=== PATIENT | male | born 1970 | race Caucasian/White ===

== ENCOUNTER 2019-09-15 10:47 | Emergency (ER) | payer OTHER ==
[~2019-09-15] VITALS: Ht 177.8 cm; Wt 141.5 kg
[2019-09-15] MEDS ORDERED: K-TAB ER20 MEQ PO (13:03)
--- NOTE | 2019-09-15 22:28 | EKG ---
[facility] [address] [facility] [place] [address] Signed Sinus rhythm with frequent premature ventricular complexes Minimal voltage criteria for LVH, may be normal variant Nonspecific T wave abnormality Abnormal ECG No previous ECGs available Confirmed by LEIGHTON MENDOZA MD ([id number]) on 09/15/2019 10:27:54 PM Electronically Signed By: LEIGHTON MENDOZA MD 09/15/19 2228 PATIENT NAME: DUNGMATHIEUMILDRED HAMEED Electrocardiogram DATE OF : 66 PHYSICIAN: LEIGHTON MENDOZA MD REPORT #: [id number] REPORT IS CONFIDENTIAL AND NOT TO BE RELEASED WITHOUT AUTHORIZATION
== END 2019-09-15 13:39 | disposition home or self-care (01) ==
LOC: ED 10:47
DX: I49.3 Ventricular premature depolarization (principal); E87.6 Hypokalemia; I10 Essential (primary) hypertension
CPT/HCPCS: 71046; 80053; 83735; 83880; 84484; 85025; 93005; 93010; 99285-25

== ENCOUNTER 2020-11-09 11:58 | Emergency (ER) | payer OTHER ==
[~2020-11-09] VITALS: Ht 177.8 cm; Wt 137.9 kg
[~2020-11-09 11:58] MED LIST: K-TAB ER20 MEQ PO
[2020-11-09] MEDS ORDERED: TELMISARTAN-HC1 EAC1 PO (12:24)
[2020-11-09] MEDS ORDERED: HYDROCODON-ACE1 EA10 PO (15:28)
[2020-11-09] MEDS ORDERED: FLOMAX0.4 MG PO (15:28)
== END 2020-11-09 15:41 | disposition home or self-care (01) ==
LOC: ED 11:58
DX: N13.2 Hydronephrosis with renal and ureteral calculous obstruction (principal); I10 Essential (primary) hypertension; Z88.0 Allergy status to penicillin; Z79.899 Other long term (current) drug therapy
CPT/HCPCS: 74176; 80053; 81001; 83690; 83735; 85025; 96374; 96375; 99284-25; J1885; J2405

== ENCOUNTER 2023-02-20 15:24 | Emergency (ER) | payer OTHER ==
[~2023-02-20] VITALS: Ht 177.8 cm; Wt 136.3 kg
--- OUTSIDE RECORDS SUMMARY | ~2023-02-20 | XMS | Continuity of Care Document ---
Demographics + + + | Address | [address] | | | [place] [address] | + + + | Preferred Language | Unknown | + + + | Marital Status | | + + + | Synagogue Affiliation | Unknown | + + + | Race | White | + + + | Ethnic Group | Unknown | + + + Author + + + | Author | [facility] | + + + | Organization | [facility] | + + + | Address | [address] | | | [place] [address] | + + + | Phone | | + + + Care Team Providers + + + + | Care Energy Advisor Name | Role | Phone | + + + + Unavailable | Unavailable | + + + + Allergies No information. Encounters No information. Functional Status No information. Immunizations No information. Medications No information. Problems + + + + | date | description | facility | + + + + | 2022-06-25 10:59 | Essential (primary) | [facility] | | | hypertension | | + + + + | 2022-06-25 10:59 | OTHER CHEST PAIN | [facility] | + + + + Procedures No information. Results/Labs No information. Social History No information. Vital Signs No information."
[~2023-02-20 15:24] MED LIST changes: +FLOMAX0.4 MG PO; +HYDROCODON-ACE1 EA10 PO; +TELMISARTAN-HC1 EAC1 PO; +VENTOLIN HFA18 GM INH
[2023-02-20] MEDS ORDERED: TELMISARTAN80 MG PO (16:28)
[2023-02-20] MEDS ORDERED: AMLODIPINE BESY10 MG PO (16:28)
[2023-02-20] MEDS ORDERED: LABETALOL HCL100 MG PO (16:28)
[2023-02-20] MEDS ORDERED: POTASSIUM CHLO20 ME1 PO (16:30)
[2023-02-20] MEDS ORDERED: IRON325 M1 PO (16:30)
[2023-02-20 19:37] VITALS: BP 152/85
--- NOTE | 2023-02-22 06:52 | EKG ---
[facility] [address] [facility] [place] [address] Signed Normal sinus rhythm Normal ECG When compared with ECG of 15-SEP-2019 10:50, premature ventricular complexes are no longer present Confirmed by CHIQUIS PRETTY MD ([id number]) on 02/22/2023 6:51:52 AM Electronically Signed By: CHIQUIS PRETTY 02/22/23 0652 PATIENT NAME: MATHIEU RAZO ZARI Electrocardiogram DATE OF : 66 PHYSICIAN: CHIQUIS PRETTY REPORT #: [id number] REPORT IS CONFIDENTIAL AND NOT TO BE RELEASED WITHOUT AUTHORIZATION
== END 2023-02-20 20:14 | disposition home or self-care (01) ==
LOC: ED 15:24
DX: R10.11 Right upper quadrant pain (principal); R25.2 Cramp and spasm; I10 Essential (primary) hypertension; G47.30 Sleep apnea, unspecified; Z88.0 Allergy status to penicillin; Z88.8 Allergy status to other drugs, medicaments and biological substances; Z79.899 Other long term (current) drug therapy
CPT/HCPCS: 36415; 80053; 82553; 82607; 82746; 83550; 83690; 83735; 84484; 85025

== ENCOUNTER 2024-03-03 05:57 | Day surgery (SDC) | payer OTHER ==
[2024-03-01 16:33] VITALS: BP 170/92
[~2024-03-03] VITALS: Ht 177.8 cm; Wt 122.7 kg
[~2024-03-03 05:57] MED LIST changes: +AMLODIPINE BESY10 MG PO; +IRON325 M1 PO; +LABETALOL HCL100 MG PO; +LACTATED RINGER'S 1,000 ML IV SCH; +POTASSIUM CHLO20 ME1 PO; +TELMISARTAN80 MG PO
[2024-03-03 06:16] VITALS: BP 132/68
[2024-03-03] MEDS ORDERED: MUCINEX600 MG PO (06:19)
[2024-03-03] MEDS ORDERED: SODIUM CHLORIDE 0.9% 60 ML IV ONE (06:42)
[2024-03-03] MEDS ORDERED: iopamidoL 30 ML VIAL ONE (06:42)
[2024-03-03] MEDS ORDERED: HEParin SOD (PORCINE) 5,000 UNIT/0.5 ML SYR SUB-Q SCH (07:00)
[2024-03-03] MEDS ORDERED: LIDOCAINE HCL 1% 5 ML SDV INJ ONE (07:00)
[2024-03-03] MEDS ORDERED: CEFAZOLIN SODIUM 3 GM/30 ML SYR IV SCH (07:00)
[2024-03-03] MEDS ORDERED: IBLOOD GLUCOSE TEST STRIP 1 EA TEST VI PRN ×2 (07:00→09:45)
[2024-03-03] MEDS ORDERED: KETOROLAC TROMETHAMINE 30 MG/ML VIAL ONE (07:12)
[2024-03-03] MEDS ORDERED: LIDOCAINE HCL 1% 30 ML SDV ONE (07:12)
[2024-03-03] MEDS ORDERED: ondansetron HCL 4 MG/2 ML VIAL ONE (07:12)
[2024-03-03] MEDS ORDERED: dexmedeTOMIDine HCl 200 MCG/2 ML VIAL ONE (07:12)
[2024-03-03] MEDS ORDERED: DEXAMETHASONE SOD PHOS 4 MG/ML VIAL ONE (07:12)
[2024-03-03] MEDS ORDERED: ROCURONIUM BROMIDE 50 MG/5 ML SYR ONE ×2 (07:12→08:48)
[2024-03-03] MEDS ORDERED: ACETAMINOPHEN 1,000 MG/100 ML VIAL ONE (07:12)
[2024-03-03] MEDS ORDERED: propofoL 200 MG/20 ML VIAL ONE (07:12)
[2024-03-03] MEDS ORDERED: KETAMINE in NS 50 MG/5 ML SYR ONE (07:13)
[2024-03-03] MEDS ORDERED: SUGAMMADEX SODIUM 200 MG/2 ML ML ONE (07:14)
[2024-03-03] MEDS ORDERED: MIDAZOLAM HCL 2 MG/2 ML VIAL ONE (07:15)
[2024-03-03] MEDS ORDERED: ePHEDrine sulfate 50 MG/ML AMP ONE (08:08)
[2024-03-03] MEDS ORDERED: LACTATED RINGER'S 1,000 ML IV ONE ×2 (08:30→09:19)
[2024-03-03] MEDS ORDERED: MORPHINE SULFATE 10 MG/ML VIAL ONE (08:37)
[2024-03-03] MEDS ORDERED: IBUPROFEN 600 MG TAB PO PRN (09:45)
[2024-03-03] MEDS ORDERED: OXYCODONE/APAP 7.5/325 TAB PO PRN (09:45)
[2024-03-03] MEDS ORDERED: fentaNYL citrate 50 MCG/ML SDV IV PRN (09:45)
[2024-03-03] MEDS ORDERED: NALOXONE HCL 0.4 MG SYR IV PRN ×2 (09:45)
[2024-03-03] MEDS ORDERED: ACETAMINOPHEN 500 MG TAB PO PRN (09:45)
[2024-03-03] MEDS ORDERED: LACTATED RINGER'S 1,000 ML IV SCH (09:45)
[2024-03-03] MEDS ORDERED: IBUPROFEN600 MG PO (09:46)
[2024-03-03] MEDS ORDERED: OXYCODON-ACETA1 EAC2 PO (09:46)
[2024-03-03] MEDS ORDERED: ACETAMINOPHEN500 MG PO (09:46)
--- NOTE | 2024-03-03 10:01 | NUR ---
03/03/24 1001 Lacho Enrique 5130-PT ARRIVED TO PACU ON 8L/MASK AND UNRESPONSIVE TO NOXIOUS STIMULI. RR EVEN AND UNLABORED. MILD SNORING NOTED AT TIMES. VISUALIZED SRGICAL SITES. PT WITH 5 LAP SITES, 4 IN RUQ, 1 AT UMBILLICUS. LATERAL RUQ LAP SITE WITH SMALL AMT OF SANGUINEOUS DRAINAGE THAT SEEPED THROUGH GOWN AND ONTO BLANKET. 1 OF THE SS NOTED TO BE LOOSE AND TWISTED. DR. MERCHANT WITH DIRECTIONS TO REINFORCE LOOSE SS. COMPLETED.
[2024-03-03 10:47] VITALS: BP 140/70
--- NOTE | 2024-03-03 11:07 | NUR ---
1050 PT ARRIVED TO DAY SURGERY FROM PACU VIA STRECHER. PT DROWSEY WITH CPAP ATTACHED. PT REPORTS 4/10 PAIN. PT REPORTS OCCASIONAL NAUSEA WHEN MOVING. PT BREATHING EQUAL AND UNLABORED. REPORT TAKEN FROM EARNESTINE Long RN. 1100 PT STATES URGE TO URINATE. PT ABLE TO AMBULATE TO BATHROOM AND URINATE 700 MLS OF URINE. PT BACK IN BED TOLERATING PO JELLO AND WATER. PT HAS CPAP ON FOR WHEN FEELING DROWSEY. PT HAS CALL LIGHT WITHIN REACH AND PERSONAL ITEMS WITHIN REACH AND AT BEDSIDE.
[2024-03-03 11:42] VITALS: BP 142/81
--- NOTE | 2024-03-03 11:44 | NUR ---
1140 HOURLY ROUNDING DONE. PT TOOK PRESCRIPTION DOWN TO PHARMACY. PT VITALS TAKEN. PT REPORTS UNTOLARABLE LEVEL OF PAIN AT 5/10. PAIN MEDICATION GIVEN RECENTLY. IV ASSESSED. PT REPORTS NO NAUSEA. PT RESTING IN BED WITH CPAP MACHINE RUNNING. PT HAS CALL LIGHT WITHIN REACH AND PERSONAL ITEMS WITHIN REACH.
--- NOTE | 2024-03-03 12:40 | NUR ---
1235 VITALS TAKEN. HOURLY ROUNDING DONE. DISHCRGE INFORMATION GONE OVER WITH AT BEDSIDE. PT REPORTS TOLERABLE 3/10 PAIN. PT AND FAMILY HAVE NO QUESTIONS AT THIS TIME. UMBILICAL LAP SITE REINFORCED WITH MORE STERI STRIPS. 1240 PT GETTING DRESSED WITH AT BEDSIDE.
--- NOTE | 2024-03-03 12:47 | OR ---
[facility] [address] [place], [place] [address] Signed DATE OF OPERATION: 03/03/2024 SURGEON: Kaitlin Merchant MD PREOPERATIVE DIAGNOSES: 1. Chronic calculous cholecystitis. 2. Morbid obesity. 3. Fatty liver. POSTOPERATIVE DIAGNOSES: 1. Chronic calculous cholecystitis. 2. Morbid obesity. 3. Fatty liver. PROCEDURES: 1. Laparoscopic cholecystectomy with intraoperative cholangiogram, prolonged. 2. Liver biopsy. 3. Surgeon-directed fluoroscopy. ANESTHESIA: General endotracheal, Gudelia Nolanerson COSMETOLOGY INSTRUCTOR. INDICATION: This 54-year-old morbidly obese white man is a patient of Dr. Garett Pryor. He has had abdominal pain that was evaluated by tv host, Dr. Haney in the [facility] including upper endoscopy and colonoscopy. There were no findings of note. Dr. Pryor continued the GI workup with gallbladder ultrasound performed on November 04, 2023 showing a gallstone without acute cholecystitis and also fatty liver. He does have symptoms highly suggestive of episodic biliary colic. This includes a "stomach ache." Bloating and fullness particularly after eating. He is admitted at this time to undergo cholecystectomy preferred by a laparoscopic approach. He understands the risk of bleeding, infection, bile duct injury, need for open procedure and of course failure to cure his symptoms. Additionally, a liver biopsy is anticipated given the fatty liver to assess possible steatohepatitis. The patient understands the risk of the operation and wished to proceed. FINDINGS: Indeed the liver was quite fatty. The gallbladder was relatively small in comparison. The gallbladder was chronically inflamed. Once excised, a single oblong dark green stone was noted. Chronic inflammatory changes of the mucosa of the gallbladder were Electronically Signed By: KAITLIN MERCHANT MD 03/03/24 1247 PATIENT NAME: MATHIEU RAZO OPERATIVE REPORT DATE OF : 66 REPORT #: [id number] PHYSICIAN: KAITLIN MERCHANT MD PCP: GARETT PRYOR MD REPORT IS CONFIDENTIAL AND NOT TO BE RELEASED WITHOUT AUTHORIZATION [facility] [address] [place], [place] [address] Signed noted as well. Cholangiogram was normal. Liver biopsy was accomplished in the left lateral segment of liver. There were no other findings of concern. The operation was somewhat prolonged and difficult related to his obesity, but was accomplished safely. DESCRIPTION OF PROCEDURE: The patient was brought to the operating room, given a general endotracheal anesthetic. His airway was somewhat difficult, but intubation was accomplished without problem. The abdomen was prepared with a chlorhexidine solution after clipping and draped sterilely. An infraumbilical incision was made and using an open Tia cannula technique pneumoperitoneum was achieved to a level of 14 mmHg of carbon dioxide gas. Intra-abdominal inspection showed no sign of ascites or carcinomatosis. The liver was fatty with markedly blunted edge. The gallbladder was obscured from view at that point. Three additional trocars were placed in their usual configuration in subxiphoid, right midclavicular, and right anterior axillary line. Gallbladder was elevated cephalad against a heavy and fatty liver. The infundibulum was grasped and retracted laterally and using careful blunt and electrocautery dissection, the triangle of Calot was dissected free ultimately identifying the cystic duct. A clip was applied across gallbladder cystic duct junction and a transverse choledochotomy made in the cystic duct. Egress of thickened bile was noted. Using an Coleman type cholangiocatheter with surgeon directed fluoroscopy intraoperative cholangiography was undertaken showing free flow of contrast into the duodenum with no sign of filling defect. Retrograde filling was not immediately forthcoming and therefore morphine was administered IV, which allowed for repeat cholangiography showing the more proximal biliary tree to be normal. The catheter was removed and the cystic duct was triply clipped and divided. The gallbladder was dissected free in a retrograde fashion. A small clip was applied to a liver bed area of arterial bleeding and cystic arterial branches were doubly clipped prior to division as well. The gallbladder was dissected free completely from the liver without entry into the gallbladder. An endobag was used to extract the gallbladder from the infraumbilical port site. The gallbladder was opened on the back table and found to have a single elongated green gallstone approximately 1.2 cm in length with marked chronic inflammation of mucosa itself. There was no sign of neoplasm. Irrigation was undertaken in subhepatic space showing no sign of bile leak or bleeding. A percutaneous biopsy using a gun device was used to provide a liver biopsy from the left lateral segment of liver. The puncture site was secured with hemostasis with electrocautery. Reinspection of subhepatic space showed no sign of bile leak or bleeding, but given the extent of dissection and the somewhat intrahepatic nature of the gallbladder to begin with. Brianda was applied to the liver bed as well as over the Electronically Signed By: KAITLIN MERCHANT MD 03/03/24 1247 PATIENT NAME: MATHIEU RAZO OPERATIVE REPORT DATE OF : 66 REPORT #: [id number] PHYSICIAN: KAITLIN MERCHANT MD PCP: GARETT PRYOR MD REPORT IS CONFIDENTIAL AND NOT TO BE RELEASED WITHOUT AUTHORIZATION [address] [address] Signed biopsy site. Excess irrigation fluid was suctioned free. The trocars were removed under direct visualization showing no sign of bleeding. The infraumbilical fascial incision was reapproximated with interrupted 0 Vicryl suture. An additional 0 PDS suture was used to secure it more fully given his obesity. Irrigation was undertaken and 10 mL of 0.25% Marcaine with epinephrine was injected locally. The skin was closed with interrupted 3-0 Vicryl. Steri-Strips were applied. The patient was ultimately extubated and transferred to the recovery room in good condition having suffered no complications. Sponge, needle, and instrument counts were reported as correct x3. The operation was difficult on the basis primarily of his obesity, but was accomplished safely. \\E\\ MD FRANCISCO Martino/ALIYAH /[id number] cc: Garett Pryor MD Copies: GARETT PRYOR MD ~ Electronically Signed By: KAITLIN MERCHANT MD 03/03/24 1247 PATIENT NAME: MATHIEU RAZO OPERATIVE REPORT DATE OF : 66 REPORT #: [id number] PHYSICIAN: KAITLIN MERCHANT MD PCP: GARETT PRYOR MD REPORT IS CONFIDENTIAL AND NOT TO BE RELEASED WITHOUT AUTHORIZATION
--- NOTE | 2024-03-03 12:59 | NUR ---
1249 PT IV DISCONTINUED FOR DISCHARGE 1250 PT DISCHARGED FROM DAY SURGERY VIA WHEELCHAIR TO THE FRONT OF THE HOSPITAL TO PT'S 'S CAR.
--- NOTE | 2024-03-07 11:21 | PATH ---
[facility] [address] [place], [place] [address] Signed SPECIMEN(S): A GALLBLADDER WITH STONE SPECIMEN(S): B LEFT LOBE OF LIVER SPECIMEN SOURCE: A. GALLBLADDER WITH STONE B. LEFT LOBE OF LIVER CLINICAL HISTORY: A) chronic cholecystitis with calculus FINAL PATHOLOGIC DIAGNOSIS: A. Gallbladder, cholecystectomy: - Chronic cholecystitis with cholelithiasis. B. Left lobe liver, needle core biopsy: - Mild steatosis without evidence of steatohepatitis, increased iron or cirrhosis. See microscopic examination. AMB MICROSCOPIC EXAMINATION: Histologic sections of all submitted blocks are examined by light microscopy. These findings, together with the gross examination, support the pathologic diagnosis. B. A single biopsy of benign hepatic tissue is reviewed, containing adequate numbers of portal triads for evaluation. The portal tracts are notable for mildly increased chronic inflammation, without evidence of interface hepatitis or bile duct injury. Cholestasis is not appreciated. The hepatic lobules are notable for mild large droplet steatosis without steatohepatitis. Trichrome and reticulin stains highlight a normal amount of increased periportal fibrosis, without evidence of septal fibrosis, architectural distortion or cirrhosis. Iron stain reveals no evidence of increased hepatocellular iron, and PAS with diastase reveals no intracellular inclusions. There is no evidence of malignancy. AMB GROSS DESCRIPTION: A. The specimen, labeled and designated "Ayan, gallbladder with stone," is received in formalin and consists of Specimen: Previously opened gallbladder. Dimensions: 7.3 x 3.5 x 1.7 cm. Serosa: Green-anderson and smooth. PATIENT NAME: MATHIEU RAZO PATHOLOGY DATE OF : 66 REPORT #: [id number] PHYSICIAN: FUAD MONGE PCP: GARETT AGUILAR MD REPORT IS CONFIDENTIAL AND NOT TO BE RELEASED WITHOUT AUTHORIZATION [facility] [address] [place], [place] [address] Signed Cystic Duct: Unobstructed, margin inked black and shaved. Calculi: Multiple black-brown smooth calculi (0.1-0.2 cm in greatest dimension, and 0.8 x 0.5 x 0.3 cm and 1.1 x 0.8 x 0.4 cm). Mucosa: Green-brown and velvety. Wall thickness: 0.2-0.6 cm. Lymph node: One green-anderson possible pericystic lymph node (0.8 x 0.5 x 0.5 cm). The tissue is submitted in toto in cassette (A2).. Additional: None. User Support Specialist sections are submitted Cassette Summary: (A1) gallbladder wall and cystic duct margin (A2) possible pericystic lymph node B. The specimen, labeled and designated "Ayan, left lobe of liver," is received in formalin and consists of one core of anderson soft tissue (1.7 cm in greatest dimension. The tissue is stained with eosin, and the specimen is submitted entirely in cassette (B1). VB (under the direct supervision of a pathologist) The Gross Description was prepared using a voice recognition system. The report was reviewed for accuracy; however, sound-alike word errors, addition and/or deletions may occur. If there is any question about this report, please contact Client Services. ADDITIONAL NOTES: Immunohistochemical and/or in situ hybridization studies if performed in this case included appropriate positive controls that reacted as expected. This test was developed and its performance characteristics determined by [facility]. It has not been cleared or approved by the U.S. Food and Drug Administration. The FDA has determined that such clearance or approval is not necessary. This test is used for clinical purposes. It should not be regarded as investigational or for research. [facility] is certified under the Clinical Laboratory Improvement Amendments of 1988 (CLIA) as qualified to perform high complexity clinical laboratory testing. PERFORMING LABORATORY: Technical component was performed by [facility], [address] [place] [address] (CLIA# [id number]). Professional interpretation was performed by [facility] [address] [facility] [id number] PATIENT NAME: MATHIEU RAZO PATHOLOGY DATE OF : 66 REPORT #: [id number] PHYSICIAN: FUAD MONGE PCP: GARETT AGUILAR MD REPORT IS CONFIDENTIAL AND NOT TO BE RELEASED WITHOUT AUTHORIZATION [facility] [address] [place] [id number] Signed Diagnostician: Bobbi Espinal MD Pathologist Electronically Signed 03/07/2024 Copies: ~ PATIENT NAME: MATHIEU RAZO PATHOLOGY DATE OF : 66 REPORT #: [id number] PHYSICIAN: FUAD MONGE PCP: GARETT AGUILAR MD REPORT IS CONFIDENTIAL AND NOT TO BE RELEASED WITHOUT AUTHORIZATION
== END 2024-03-03 12:50 | disposition home or self-care (01) ==
LOC: DS 05:57
PROVIDERS: ATTEND Surgery
PROC: 0FT44ZZ Resection of Gallbladder, Percutaneous Endoscopic Approach (ICD-10-PCS; principal; 2024-03-03 07:30)
PROC: 0FB23ZX Excision of Left Lobe Liver, Percutaneous Approach, Diagnostic (ICD-10-PCS; 2024-03-03 07:30)
DX: K80.10 Calculus of gallbladder with chronic cholecystitis without obstruction (principal); K76.0 Fatty (change of) liver, not elsewhere classified; I10 Essential (primary) hypertension; E66.01 Morbid (severe) obesity due to excess calories; Z68.41 Body mass index [BMI] 40.0-44.9, adult; Z88.0 Allergy status to penicillin; Z79.899 Other long term (current) drug therapy
CPT/HCPCS: 00790; 74300; J0131; J0690; J1100; J1644; J1885; J2250; J2270; J2405; J2704; J3490; J7121; Q9967